=== PATIENT | female | born 1955 | race Caucasian/White ===

== ENCOUNTER 2017-10-07 06:20 | Day surgery (SDC) | payer OTHER ==
[2017-10-06 09:01] VITALS: BMI 27.1
--- NOTE | 2017-10-06 22:59 | HP ---
DATE OF ADMISSION: 10/07/2017 HISTORY OF PRESENT ILLNESS: This is a 62-year-old female with chronic acid reflux. The graham hui has a family history of esophageal cancer. Apparently, the patient's father had esophageal can cer. The patient does not have any dysphagia or odynophagia. Her reflux seems to be longstanding. She has no abdominal pain. Her bowel movements are regular. Last colonoscopy was 11 years ago. The patient comes for an EGD because of chronic acid reflux and for a colonoscopy for colon cancer jules patiño. ALLERGIES: None. SOCIAL HISTORY: The patient is a former smoker. She does drink alcohol socially. MEDICAL ILLNESSES: 1. Hypertension. 2. Diabetes mellitus. 3. Hyperlipidemia. 4. Chronic acid reflux. 5. Dry eyes. 6. Osteoporosis. 7. Hysterectomy. 8. Cystocele and rectocele. PHYSICAL EXAMINATION: VITAL SIGNS: Pulse is 70, blood pressure 120/70. HEENT: Conjunctivae are clear. CARDIOVASCULAR SYSTEM: First and second heart sounds are normal. LUNGS: Clear to auscultation. ABDOMEN: Soft to palpate. No organomegaly. No tenderness. No masses. EXTREMITIES: Reveal no edema. ADMITTING DIAGNOSIS: This is a 62-year-old female with chronic acid reflux comes for an EGD. The graham hui will also have colonoscopy for colon cancer screening.
[2017-10-07] MEDS ORDERED: Fentanyl 100 MCG/2 ML VIAL ONE (08:25)
[2017-10-07] MEDS ORDERED: Propofol 200 MG/20 ML VIAL ONE (15:53)
[2017-10-07] MEDS ORDERED: Lidocaine 1% PF 5 ML VIAL ONE (15:53)
--- NOTE | 2017-10-07 20:41 | OP ---
DATE OF PROCEDURE: 10/07/2017 OPERATIVE PROCEDURE: Colonoscopy. PREOPERATIVE DIAGNOSIS: A 62-year-old female undergoing colonoscopy for colon cancer jules patiño. POSTOPERATIVE DIAGNOSES: 1. Mild sigmoid diverticular disease. 2. Retained stool in the colon, which was washed out. 3. Hemorrhoids. PROCEDURE IN DETAIL: The patient was placed on her left lateral position and was given sedation by [facility]. A rectal exam was done and scope was advanced into the rectum. No lesions wer e felt on rectal exam. A Pentax video colonoscope was introduced into the rectum and advanced all th e way into the cecum. The patient had some retained stool intermittently in the colon. This was was hed out and suctioned out. The appendiceal orifice, ileocecal valve, and cecum, no pathology seen. The ascending colon, hepatic flexure, transverse colon, , and descending colon, no lesions seen. The sigmoid colon showed scattered diverticulosis. Rectum showed hemorrhoids.
--- NOTE | 2017-10-07 21:37 | OP ---
DATE OF PROCEDURE: 10/07/2017 OPERATIVE PROCEDURE: Esophagogastroduodenoscopy with biopsy. PREOPERATIVE DIAGNOSIS: A 62-year-old female with chronic acid reflux, undergoing esophago gastroduodenoscopy. POSTOPERATIVE DIAGNOSES: 1. Multiple esophageal erosions, mid and distal esophagus, otherwise, the mucosa appeared normal. 2. Small hiatus hernia. 3. Mild gastritis and mild duodenitis. PROCEDURE IN DETAIL: The patient was placed on her left lateral position and was given sedation by A [facility]hesia Department. A Pentax video gastroscope under direct vision was passed down the oropharynx, past the gastroesophageal junction, into the stomach and subsequent descending duodenum. The upper esophageal mucosa appeared normal. Starting in the midesophagus and going to the distal esophagus, t he patient was found to have multiple erosions. The erosions are small and intermittent mucosa appea red normal. The GE junction, no pathology seen. She had a small hiatus hernia. Retroflexion failed to show any lesions in the fundus or cardia. The gastric body, no pathology seen. The gastric antr um showed mild gastritis. The duodenal bulb again showed patchy areas of . The descending duod enum, no pathology seen. Biopsies were obtained from the distal esophagus. Multiple biopsies showed obtained from the gastric antrum. The stomach was decompressed and the scope removed. DISCHARGE PLANNING: This is a 62-year-old female with longstanding acid reflux and family history of esophageal cancer. The patient came in for EGD and also colonoscopy for colon cancer scre ening. The EGD showed multiple esophageal erosions and small hiatus hernia. She also had some duode nitis and some gastritis. The colonoscopy was basically negative. DISCHARGE RECOMMENDATIONS: 1. Start the patient on omeprazole 40 once a day. 2. Dietary and lifestyle modifications as per the patient. 3. To come back to clinic in 2 weeks.
== END 2017-10-07 10:32 | disposition home or self-care (01) ==
LOC: SDC 06:20
PROVIDERS: ATTEND Internal Medicine Gastroenterology
PROC: 0DJD8ZZ Inspection of Lower Intestinal Tract, Via Natural or Artificial Opening Endoscopic (ICD-10-PCS; principal; 2017-10-07)
PROC: 0DB68ZX Excision of Stomach, Via Natural or Artificial Opening Endoscopic, Diagnostic (ICD-10-PCS; principal; 2017-10-07)
DX: Z12.11 Encounter for screening for malignant neoplasm of colon (principal); K29.50 Unspecified chronic gastritis without bleeding; K29.80 Duodenitis without bleeding; K21.9 Gastro-esophageal reflux disease without esophagitis; K22.10 Ulcer of esophagus without bleeding; K44.9 Diaphragmatic hernia without obstruction or gangrene; K57.30 Diverticulosis of large intestine without perforation or abscess without bleeding; K64.9 Unspecified hemorrhoids; Z88.1 Allergy status to other antibiotic agents; Z90.710 Acquired absence of both cervix and uterus; Z90.89 Acquired absence of other organs; Z98.890 Other specified postprocedural states
CPT/HCPCS: 88305; 88312; 88313; J2001; J2704; J3010

== ENCOUNTER 2019-01-25 08:50 | Outpatient (CLI) | payer OTHER ==
--- NOTE | 2019-01-25 09:31 | RAD ---
LEFT WRIST THREE VIEWS: History: Trauma to wrist. FINDINGS: There are arthritic changes of the wrist with degenerative change of the first carpal metacarpal join t space and triscaphe joint. There are some cystic changes along the ulnar side of the base of the jamilah sahil and the adjacent triquetrum. Changes would indicate some abutment and would indicate that there is probably underlying triangular fibrocartilage injury. There is an old appearing avulsive injury in volving the ulnar styloid. There are no signs of any acute fracture. IMPRESSION: No acute injury. Arthritic change of the wrist. Other changes as discussed above. POS: [facility]
== END 2019-01-25 08:51 | disposition home or self-care (01) ==
LOC: BICRAD 08:50
DX: Z03.89 Encounter for observation for other suspected diseases and conditions ruled out (principal); M19.032 Primary osteoarthritis, left wrist; Z87.828 Personal history of other (healed) physical injury and trauma

== ENCOUNTER 2020-07-11 10:28 | Outpatient (CLI) | payer OTHER ==
--- NOTE | 2020-07-11 12:12 | MMO ---
Bilateral MAMMO Bilat Screen [facility]. CLINICAL HISTORY: Patient is 65 years old and is seen for screening. VIEWS: The views performed were: . FILMS COMPARED: The present examination has been compared to prior imaging studies performed at [facility] on 10/31/2016, and at [facility] on 06/11/2007 and 03/16/2015. This study has been interpreted with the assistance of computer-aided detection. MAMMOGRAM FINDINGS: There are scattered fibroglandular densities. There are no suspicious masses, suspicious calcifications, or new areas of architectural distortion. IMPRESSION: THERE IS NO MAMMOGRAPHIC EVIDENCE OF MALIGNANCY. A ROUTINE FOLLOW-UP MAMMOGRAM IN 1 YEAR IS RECOMMENDED. THE RESULTS OF THIS EXAM WERE SENT TO THE PATIENT. ACR BI-RADS Category 1 - Negative MAMMOGRAPHY NOTE: 1. A negative mammogram report should not delay a biopsy if a dominant of clinically suspicious mass is present. 2. Approximately 10% to 15% of breast cancers are not detected by mammography. 3. Adenosis and dense breasts may obscure an underlying neoplasm. Reported by: IVAN SARMIENTO MD Electonically Signed: [id number]
== END 2020-07-11 10:29 | disposition home or self-care (01) ==
LOC: BICMAMMO 10:28
DX: Z12.31 Encounter for screening mammogram for malignant neoplasm of breast (principal)
CPT/HCPCS: 77063; 77067